=== PATIENT | female | born 1945 | race Caucasian/White ===

== ENCOUNTER 2018-02-22 12:26 | Day surgery (SDC) | payer MEDICARE, MEDICAID ==
[~2018-02-22] VITALS: Ht 149.9 cm; Wt 78.2 kg
[2018-02-22 12:35] VITALS: BP 134/65
[2018-02-22] MEDS ORDERED: AMLO5TAB PO (12:55)
[2018-02-22] MEDS ORDERED: FURO-150 PO (12:56)
[2018-02-22] MEDS ORDERED: ATOR40TA71 PO (12:56)
[2018-02-22] MEDS ORDERED: LEVO112T5 PO (13:01)
[2018-02-22] MEDS ORDERED: LISI40TA4 PO (13:01)
[2018-02-22] MEDS ORDERED: MIDAZolam 5mg/5ml vial ONE (13:01)
[2018-02-22] MEDS ORDERED: fentaNYL/PF 50MCG/1 ML 2ML syringe ONE (13:01)
[2018-02-22] MEDS ORDERED: MIRT7.5T11 PO (13:02)
[2018-02-22] MEDS ORDERED: MIRT15TA8 PO (13:02)
[2018-02-22] MEDS ORDERED: PRAZ5CAP PO (13:03)
[2018-02-22] MEDS ORDERED: PANT-47 PO (13:03)
[2018-02-22] MEDS ORDERED: MILN50TA PO (13:04)
[2018-02-22] MEDS ORDERED: TRAZ-146 PO (13:06)
[2018-02-22] MEDS ORDERED: TRAZ-143 PO (13:07)
[2018-02-22 14:36] VITALS: BP 117/40
[2018-02-22 14:45] VITALS: BP 114/64
[2018-02-22 14:55] VITALS: BP 133/70
[2018-02-22 15:05] VITALS: BP 138/51
== END 2018-02-22 15:11 | disposition home or self-care (01) ==
LOC: GI LAB 12:26
PROVIDERS: ATTEND Internal Medicine Gastroenterology
DX: D12.4 Benign neoplasm of descending colon (principal); K63.89 Other specified diseases of intestine; I10 Essential (primary) hypertension; I25.10 Atherosclerotic heart disease of native coronary artery without angina pectoris; M81.0 Age-related osteoporosis without current pathological fracture; E89.0 Postprocedural hypothyroidism; F32.89 Other specified depressive episodes; F41.8 Other specified anxiety disorders; K21.9 Gastro-esophageal reflux disease without esophagitis; G89.29 Other chronic pain; Z79.891 Long term (current) use of opiate analgesic; Z90.49 Acquired absence of other specified parts of digestive tract; Z90.710 Acquired absence of both cervix and uterus; Z90.89 Acquired absence of other organs; Z90.11 Acquired absence of right breast and nipple; Z85.820 Personal history of malignant melanoma of skin; Z96.653 Presence of artificial knee joint, bilateral; Z86.73 Personal history of transient ischemic attack (TIA), and cerebral infarction without residual deficits; Z88.2 Allergy status to sulfonamides; Z98.890 Other specified postprocedural states; Z79.899 Other long term (current) drug therapy
CPT/HCPCS: 45380; 45385; G0500; J2250; J3010; J7030; 88305; 88313; A4620